=== PATIENT | female | born 1955 | race Two or more races ===

== ENCOUNTER → 2017-10-26 | Outpatient (CLI) | payer OTHER ==
[~2017-10-26] VITALS: Ht 165.1 cm; Wt 127.0 kg
[~2017-10-26] MED LIST: ADENOSINE 107 MG in GIVE UN-DILUTED 0 ML IV STA
[2017-10-26 09:49] VITALS: BP 142/59
== END | disposition home or self-care (01) ==
LOC: XY 08:21
PROVIDERS: ATTEND Internal Medicine
DX: R07.9 Chest pain, unspecified (principal)
CPT/HCPCS: 78452; 93017; A9500; J0153